=== PATIENT | male | born 1935 | race Caucasian/White ===

== ENCOUNTER → 2017-08-28 | Outpatient (CLI) | payer OTHER ==
[~2017-08-28] VITALS: Ht 167.6 cm; Wt 94.8 kg
[~2017-08-28] MED LIST: ASA5UEC PO; ASPIRIN81 M2 PO; CENTRUM SILVER1 EAC2 PO; DILTIAZEM 24HR240 M2 PO; HYDROCODON-ACE1 EAC7 PO; IRON18 M1 PO; MULTIVITAMINS1 EAC7 PO; PRAVACHOL40 MG PO; PROSCAR 5MG TABL5 MG PO; TAMSULOSIN HCL0.4 MG PO
--- NOTE | ~2017-08-28 | P ---
[facility] [place] [address] PROCEDURE REPORT Name: DAVID WILLSON Room #: REG Marlen Keri#: [id number] Admission: 08/28/17 Attend Phys: Ron Jones MD Discharge: Date of : 37 Report #: [id number] THIS REPORT FOR: //name// CC: Ron Weiss MD BRIEF HISTORY: The patient is an 82-year-old male who has never had a colonoscopy. He was found to have Hemoccult positive stools and mild anemia. PREOPERATIVE DIAGNOSES: Anemia and Hemoccult positive stools. POSTOPERATIVE DIAGNOSES: 1. Cecal mass consistent with cecal carcinoma. 2. Multiple colon polyps. 3. Moderate sigmoid diverticulosis coli. MEDICATIONS: Deep sedation with propofol per anesthesia. SPECIMENS: 1. Mid transverse colon polyp. 2. Biopsy of the cecal mass. 3. Hepatic flexure polyp. 4. Paroxysmal transverse colon polyp. 5. Polyp at 70 cm. ESTIMATED BLOOD LOSS: 3 mL. PROCEDURE: Colonoscopy to cecum and terminal ileum with snare polypectomy and biopsy. FINDINGS: Prior to propofol sedation, the procedure of colonoscopy was discussed with the patient as well as potential risks, benefits and complications. He indicates he understands and desires to proceed. With the patient in left lateral decubitus position, digital examination was completed, which revealed no abnormalities. Subsequently, the [employer] video colonoscope was introduced in the rectum, advanced under direct vision to the cecum. Done with minimal difficulty. The cecum was identified by the ileocecal valve and the appendiceal orifice. I was able to visualize the ileocecal valve and the distal segment of terminal ileum, which was inspected and noted to be unremarkable. At that point, the scope was slowly withdrawn and careful circumferential views were obtained. There was a small amount of blood in the cecum. In addition, there was an irregular malignant appearing mass in the cecum, ulcers were not seen, active bleeding was not seen. Findings were consistent with a cecal carcinoma. Multiple biopsies were obtained. As we withdrew the scope, he was found to have a diminutive polyp at the [address] [address] PROCEDURE REPORT Name: DAVID WILLSON Room #: REG [facility] Efrain#: [id number] Admission: 08/28/17 Attend Phys: Ron Jones MD Discharge: Date of : 37 Report #: [id number] flexure, removed with biopsy forceps. A 5-mm sessile proximal transverse colon polyp was seen and removed by cold snare polypectomy. A diminutive polyp was removed from mid transverse colon, another Diminutive polyp at 70 cm. No additional mass lesions were seen. In the left colon, particularly the sigmoid colon, there was moderately severe diverticular disease without endoscopic evidence of diverticulitis. Scope was withdrawn in the rectum and the rectum was inspected and noted to be unremarkable. Upon retroflexion, no additional lesions were seen. The scope was withdrawn. The patient tolerated the procedure well. CONDITION OF THE PATIENT UPON DISCHARGE: Following procedure, the patient drowsy. He will be discharged to home when fully ambulatory. INSTRUCTIONS TO THE PATIENT AND FAMILY AT THE TIME OF DISCHARGE: The patient has findings of a mass lesion in the cecum, this is likely the source of his anemia. We will follow up on biopsies obtained today. We will discuss with his primary care physician, Dr. Jenn Weiss. He will need further investigation, which included a CT scan of the chest, abdomen, and pelvis. He will also need surgical resection of the lesion. If the patient does well, he should return in 1 year for a followup colonoscopy. This the patient's first colonoscopy, withdrawal time from cecum was 16 minutes and 45 seconds. By: 1014 1146 Ron Jones MD /ruth
--- NOTE | ~2017-08-28 | P ---
[facility] [place] [address] PROCEDURE REPORT Name: DAVID WILLSON Room #: REG Marlen Cook#: [id number] Admission: 08/28/17 Attend Phys: Ron Jones MD Discharge: Date of : 36 Report #: [id number] THIS REPORT FOR: //name// CC: Ron Weiss MD BRIEF HISTORY: The patient is an 82-year-old male who was recently found to have Hemoccult positive stools on a routine exam. He also is anemic and has been placed on iron replacement. He has not had any GI symptoms, upper or lower GI. PREOPERATIVE DIAGNOSES: Anemia and Hemoccult-positive stools. POSTOPERATIVE DIAGNOSIS: Mild diffuse antral gastritis. MEDICATIONS: Deep sedation with propofol per anesthesia. SPECIMENS: 1. Biopsies of duodenum to rule out celiac disease. 2. Biopsies of gastritis. ESTIMATED BLOOD LOSS: 3 mL. PROCEDURE: EGD with biopsy. FINDINGS: Prior to propofol sedation, the procedure of upper endoscopy discussed with the patient as well as potential risks, benefits, and complications. He indicates he understands and desires to proceed. With the patient in left lateral decubitus position, the [employer] video endoscope was inserted in the cervical esophagus under direct vision without difficulty. Examination of this organ through its entire length revealed normal esophageal mucosa down the squamocolumnar junction. No ulcers or erosions were seen. No bleeding lesions were seen. There was no evidence of esophagitis or hiatus hernia or Saeed mucosa. The scope was advanced in the stomach, which was examined on end view as well as retroflexed views. There was erythema in the antrum, but no ulcers or erosions were seen. No bleeding lesions were seen. Upon retroflexion, no mass lesions were seen. Biopsies were obtained of the gastritis. The pylorus was normal. Duodenal bulb was normal. Postbulbar duodenal sweep down to the third portion was normal. At that point, the scope was slowly withdrawn and careful circumferential views were obtained. Biopsies were obtained of the duodenum to rule out celiac disease. Scope was withdrawn. The patient tolerated the procedure well. CONDITION OF THE PATIENT UPON DISCHARGE: Following procedure, the patient drowsy and prepared for colonoscopy. [facility] [address] [place] [address] PROCEDURE REPORT Name: DAVID WILLSON Room #: REG [facility]#: [id number] Admission: 08/28/17 Attend Phys: Ron Jones MD Discharge: Date of : 37 Report #: [id number] INSTRUCTIONS TO THE PATIENT AND FAMILY AT THE TIME OF DISCHARGE: He does have a gastritis, but no significant mucosal lesions to explain blood in stool or anemia. We will follow up on biopsies obtained today. We will proceed with colonoscopy. By: 0926 1130 Ron Jones MD /nt
--- NOTE | ~2017-08-28 | S ---
[facility] [place] [address] SURGICAL PATH RPT PROCEDURE Name: DAVID WILLSON Room #: REG JOY Cook.#: [id number] Admission: 08/28/17 Date of : 37 Discharge: Report #: [id number] Path Case #: [id number] PATHOLOGY REPORT COLLECTION DATE: 08/28/2017 RECEIVED DATE: 08/28/2017 SUBMITTING PHYS: Dr. Ron Jones OTHER PHYS: Dr. Jenn Weiss SPECIMEN(S) RECEIVED: A.Bx duodenum R/O celiac disease B.Bx gastritis C.Polyp at mid transverse colon D.Cecal mass E.Polyp at hepatic flexure F.Polyp at proximal transverse colon G.Polyp at 70 cm * * * * * * * * * * * * FINAL DIAGNOSIS: A. Small bowel, duodenum, biopsy: - Mild chronic inflammation. - Normal villous architecture. B. Stomach, biopsy: - Chronic superficial gastritis, mild. - No evidence of Helicobacter pylori on immunoperoxidase stain. C. Colon, mid transverse, biopsy: - Hyperplastic polyp. D. Colon, "cecal mass", biopsy: - Invasive moderately differentiated adenocarcinoma with associated abundant acute and chronic inflammation. (Please see comment) E. Colon, hepatic flexure, biopsy: - Hyperplastic polyp. F. Colon, proximal transverse, biopsy: - Adenomatous colonic mucosa, three fragments. - Colonic mucosa with mild hyperplastic changes, two fragments. G. Colon, 70 cm, biopsy: - Adenomatous polyp, one fragment. - Several tiny fragments of colonic mucosa with mild hyperplastic changes. (SKM:whitney; 08/29/2017) COMMENT: Part "D" of this case has also been reviewed by Danny Hi M.D., who agrees with the diagnosis. Per Cancer Committee protocol at [facility], the tumor [facility] [address] [place] [address] SURGICAL PATH RPT PROCEDURE Name: DAVID WILLSON Room #: REG JOY CookCeleste#: [id number] Admission: 08/28/17 Date of : 37 Discharge: Report #: [id number] Path Case #: [id number] present in part D will be tested for microsatellite instability. The results will be issued separately. The findings in this case were discussed with Dr. Ron Jones on 08/29/2017. (DANIELM:whitney; 08/29/2017) PATHOLOGIST: Bridget Varela M.D. REPORT ELECTRONICALLY SIGNED BY: Bridget Varela M.D. DATE/TIME: 08/29/2017 14:30 * * * * * * * * * * * * GROSS PATHOLOGY: A. Received in formalin labeled "EVA Rascon duodenum, rule out celiac," are 4 segments of grijalva soft tissue measuring 1.4 x 1.2 x 0.3 cm in aggregate dimensions and ranging from 0.2 to 0.7 cm in maximum dimension. The specimen is submitted entirely in cassette A1. B. Received in formalin labeled "EVA Rascon gastritis," are 5 segments of grijalva soft tissue measuring 1.8 x 0.7 x 0.3 cm in aggregate dimensions and ranging from 0.3 to 0.6 cm in maximum dimension. The specimen is submitted entirely in cassette B1. C. Received in formalin labeled "David Willson, polyp at mid transverse colon," is a segment of grijalva soft tissue measuring 0.4 cm in maximum dimension. The specimen is submitted entirely in cassette C1. D. Received in formalin labeled "David Willson, BX cecal mass," are 4 segments of grijalva soft tissue measuring 1.3 x 0.9 x 0.3 cm in aggregate dimensions and ranging from 0.2 to 0.5 cm in maximum dimension. The specimen is submitted entirely in cassette D1. E. Received in formalin labeled "David Willson, polyp at hepatic flexure," is a segment of grijalva soft tissue measuring 0.4 cm in maximum dimension. The specimen is submitted entirely in cassette E1. F. Received in formalin labeled "David Willson, polyp at proximal transverse colon," are 5 segments of grijalva soft tissue measuring 1.9 x 1.1 x 0.3 cm in aggregate dimensions and ranging from 0.3 to 0.5 cm in maximum dimension. The specimen is submitted entirely in cassette F1. G. Received in formalin labeled "David Willson, polyp at 70 cm," are 4 segments of grijalva soft tissue measuring 0.7 x 0.2 x 0.2 cm in aggregate dimensions and ranging from 0.3 to 0.4 cm in maximum dimension. The specimen is submitted entirely in cassette G1. (TSD; 08/28/2017) CLINICAL HISTORY: Pre-OP DX: Blood in stool Post-OP DX: Gastritis, diverticulosis, colon polyp, cecal mass [address] [address] SURGICAL PATH RPT PROCEDURE Name: DRU WILLSONFORD Fran Room #: REG JOY Zuniga#: [id number] Admission: 08/28/17 Date of : 37 Discharge: Report #: [id number] Path Case #: [id number] INITIAL CPT CODE(S): A; 06518 B; 98198, 77283 C; 74783 D; 78792, 27825, 74751, 64414, 28921 E; 24333 F; 51267 G; 05931 Professional services performed by [facility] [place] [address] [address], [place] [address] Technical services performed by [facility] at [address] [place] [address], [facility] [address] [address]. [facility] [address] [place] [address] PHONE: [phone] DIRECTOR: Denis Krishnamurthy M.D. * * * END OF REPORT * * *
== END | disposition home or self-care (01) ==
LOC: GI 07:26
DX: C18.0 Malignant neoplasm of cecum (principal); K29.60 Other gastritis without bleeding; K63.5 Polyp of colon; D64.9 Anemia, unspecified; D12.3 Benign neoplasm of transverse colon; K57.30 Diverticulosis of large intestine without perforation or abscess without bleeding; J43.9 Emphysema, unspecified; I10 Essential (primary) hypertension; Z95.1 Presence of aortocoronary bypass graft; Z98.890 Other specified postprocedural states; E78.00 Pure hypercholesterolemia, unspecified
CPT/HCPCS: 62110; 62900

== ENCOUNTER → 2017-09-08 | Outpatient (CLI) | payer OTHER ==
--- NOTE | ~2017-09-08 | 2DMMODE ---
[facility] [place] [place] [address] 2 D/M-MODE ECHOCARDIOGRAM Name: DAVID WILLSON Room #: REG [facility]#: [id number] Admission: 09/08/17 Attend Phys: Francisco Javier Marti MD Discharge: Date of : 37 Date of Service: 09/08/17 1322 Report #: [id number] THIS REPORT FOR: //name// APPROVED REPORT Study performed: 09/08/2017 12:43:16 EXAM: Comprehensive 2D, Doppler, and color-flow Echocardiogram Patient Location: Echo lab Status: routine BSA: 2.04 BP: 122/77 mmHg Other Information Study Quality: Adequate Indications CAD 2D Dimensions RVDd: 30.35 mm LVEF(%): 57.01 (>50%) IVSd: 12.76 (7-11mm) LVOT Diam: 20.32 (18-24mm) LVDd: 37.82 mm PWd: 12.46 (7-11mm) Ascending Ao: 31.29 (22-36mm) LVDs: 26.72 (25-40mm) Aortic Root: 32.87 mm IVC: 9.00 mm Upton's LVEF: 57.01 % Volumes Left Atrial Volume (Systole) Single Plane 4CH: 16.75 mL Single Plane 2CH: 23.31 mL LA ESV Index: 11.00 mL/m2 Aortic Valve AoV Peak Jose Juan.: 1.42 m/s AO Peak Gr.: 8.07 mmHg LVOT Max P.23 mmHg LVOT Max V: 0.90 m/s ROSSY Vmax: 2.05 cm2 Mitral Valve E/A Ratio: 0.7 MV Decel. Time: 220.32 ms MV E Max Jose Juan.: 0.78 m/s [facility] [place] [address] [place] [address] 2 D/M-MODE ECHOCARDIOGRAM Name: ESTEPHANIEADVID HARTLEY Room #: [facility]#: [id number] Admission: 09/08/17 Attend Phys: Francisco Javier Marti MD Discharge: Date of : 37 Date of Service: 09/08/17 1322 Report #: [id number] MV A Jose Juan.: 1.08 m/s MV PHT: 63.89 ms IVRT: 129.18 ms Pulmonary Valve PV Peak Jose Juan.: 1.01 m/s PV Peak Gr.: 4.08 mmHg Tricuspid Valve RAP Estimate: 5.00 mmHg Left Ventricle The left ventricle is normal size. Mild concentric left ventricular hypertrophy. The left ventricular systolic function is normal. The left ventricular ejection fraction is within the normal range. LVEF is 55-60%. Mild diastolic dysfunction is present (impaired relaxation pattern). Right Ventricle The right ventricle is normal size. Right ventricle is mildly hypokinetic. Atria The left atrium size is normal. The right atrium size is normal. Aortic Valve The aortic valve is normal in structure. No aortic regurgitation is present. There is no aortic valvular stenosis. Mitral Valve The mitral valve is normal in structure. There is no mitral valve regurgitation noted. No evidence of mitral valve stenosis. Tricuspid Valve The tricuspid valve is normal in structure. Trace tricuspid regurgitation. Unable to assess PA pressure. Pulmonic Valve The pulmonary valve is normal in structure. There is no pulmonic valvular regurgitation. Great Vessels The aortic root is normal in size. IVC is normal in size and collapses >50% with inspiration. Pericardium [facility] [place] [address] [place] [address] 2 D/M-MODE ECHOCARDIOGRAM Name: DAVID WILLSON Room #: REG [facility]#: [id number] Admission: 09/08/17 Attend Phys: Francisco Javier Marti MD Discharge: Date of : 37 Date of Service: 09/08/17 1322 Report #: [id number] There is no pericardial effusion. <Conclusion> The left ventricle is normal size. Mild concentric left ventricular hypertrophy. The left ventricular systolic function is normal. Mild diastolic dysfunction is present (impaired relaxation pattern). The right ventricle is normal size. The left atrium size is normal. The aortic valve is normal in structure. The mitral valve is normal in structure. There is no pericardial effusion. <ELECTRONICALLY SIGNED> By: Francisco Javier Marti MD 09/08/17 1322 21 21 Francisco Javier Marti MD /INF
== END ==
LOC: CV 12:00
DX: I25.10 Atherosclerotic heart disease of native coronary artery without angina pectoris (principal); I51.7 Cardiomegaly

== ENCOUNTER → 2019-02-23 | Outpatient (CLI) | payer OTHER, MEDICARE ==
[~2019-02-23] VITALS: Ht 165.1 cm; Wt 91.9 kg
[~2019-02-23] MED LIST changes: +ALBUTEROL2.5 MG/31 INH; +FLORASTOR250 MG PO; +LASIX 20 MG TAB20 MG PO; +NORCO 5-325 TA1 EAC1 PO; +TYLENOL325 MG PO; +URECHOLINE25 MG PO
[2019-02-23 09:49] VITALS: BP 112/74
--- NOTE | 2019-02-23 10:06 | NUR ---
Pain Clinic Assessment: 1. History of Osteoarthritis: History of Rheumatoid Arthritis: 2. Height: 5 ft. 5 in. 165.1 cm. Weight: 202.6 lb. oz. 91.899 kg. Patient's BMI: 33.7 3. Vital Signs: BP: 112/74 Pulse: 98 Resp: 20 Temp: 02 Sat: 98 ECG Mon: 4. Pain Intensity: 5 5. Fall Risk: Dizziness: N Needs help standing or walking: Y Fallen in the last 3 months: N Fall risk comments: 6. Patient on Blood Thinner: None 7. History of Hypertension: Y 8. Opioid Therapy greater than 6 weeks: N Opiate Contract Signed: 9. Risk Assessment Tool Provided: 10. Functional Assessment Tool: 11. Recreational Drug Use: Never Drug Type: Tobacco Use: Never Smoker Tobacco Type: Amount or Packs/day: How Many Years: Alcohol Use: No Frequency: Quant:
--- NOTE | 2019-03-02 13:04 | HPC ---
[facility] [place] [address] PAIN MANAGEMENT CONSULTATION Name: DEMETRISDAVID Fran Room #: REG JOY Efrain#: [id number] Admission: 02/23/19 ������������������ Attend Phys: Lj Patel DO Discharge: ������������������ Date of : 37 Report #: [id number] THIS REPORT FOR: //name// CC: Lj Weiss MD DATE OF SERVICE: 02/23/2019 REFERRING PHYSICIAN: Jenn Weiss M.D. CHIEF COMPLAINT: Low back pain and lower extremity pain with paresthesias. HISTORY OF PRESENT ILLNESS: As you know, the patient is an 83-year-old male who has been referred to our clinic for low back pain, bilateral lower extremity pain, unresponsive to conservative medication management. The patient has sought treatment with Dr. Jenn Weiss and has trialed conservative treatment options. Unfortunately, his symptoms have not been responsive to these conservative treatments including home physical therapy program that is physician-directed medication management. The patient has recently undergone a new MRI of the lumbar spine, which shows multilevel degenerative changes throughout the lumbar region with foraminal stenosis noted at the L5-S1 level that is severe in nature. There is mild central canal stenosis at L3-L4 and L4-L5. Due to lack of improvement with conservative treatment, the patient was subsequently referred to our clinic to discuss treatment options. The patient states today pain is aching, sharp, throbbing, numbness and constant. He places current pain score 5/10. He states the pain is exacerbated with lying down and certain activities and improves with rest, relaxation, heat and cold compresses. The patient has been referred to our clinic for evaluation for possible lumbar epidural injection under fluoroscopic guidance. PAST MEDICAL HISTORY: 1. Hypertension. 2. Asthma. 3. Benign prostatic hypertrophy. 4. Dyslipidemia. 5. Osteoarthritis. 6. Colon cancer. PAST SURGICAL HISTORY: 1. Coronary artery bypass grafting. 2. Herniorrhaphy. 3. Lithotripsy. 4. Colectomy. [address] [address] PAIN MANAGEMENT CONSULTATION Name: DAVID WILLSON Room #: REG [facility] Joyce.#: [id number] Admission: 02/23/19 ������������������ Attend Phys: Lj Patel DO Discharge: ������������������ Date of : 36 Report #: [id number] SOCIAL HISTORY: The patient denies tobacco, alcohol or IV or illicit drug use. He is retired, retired years ago and not receiving workmen's compensation nor is he trying to obtain disability benefits. ALLERGIES: PENICILLIN. CURRENT MEDICATIONS: Hydrocodone 5/325 one tab p.o. q. 8 hours p.r.n. for pain, albuterol 2 puffs q. 4 hours p.r.n., furosemide 20 mg once a day, Florastor 250 mg twice a day, acetaminophen 325 mg once a day, diltiazem ER 240 mg once a day, aspirin 81 mg per day, tamsulosin 0.4 mg once a day, finasteride 5 mg per day and pravastatin 40 mg per day. IMAGING DATA: MRI of the lumbar spine obtained 02/01/2019 shows multilevel degenerative changes of the lumbar spine with foraminal stenosis noted at the L5-S1 level, classified as severe, mild central canal stenosis noted at L3-L4 and L4-L5 and there is mild disk bulging and facet arthropathy noted throughout lumbar region. PQRS: The patient has known osteoarthritic changes of the lumbar spine, bilateral hips and cervical region. He is not treated for rheumatoid arthritis, nor does he carries a diagnosis of rheumatoid arthritis. He is placing pain intensity 5/10. He is a fall risk but has not had a fall in the last 3 months. He is utilizing an ambulatory devices at present. These do not appear to be prescribed. The patient is not on blood thinners but is treated for hypertension. He is on opioids but has not been on for greater than 6 weeks. He has a low opiate addiction potential. Pain impact score 52/70, severe interference of daily activities secondary to pain. PHYSICAL EXAMINATION: VITAL SIGNS: Blood pressure 112/74, pulse 98 and respiratory rate 20 and unlabored. The patient is 98% on room air. Height 5 feet 5 inches tall, weight 202.6 pounds and BMI calculated 33.7. GENERAL: Well-developed, well-nourished, well-hydrated 83-year-old male appearing stated age, placing current pain score at anywhere from 5-6/10 depending on activity. HEENT: Normocephalic and atraumatic. Pupils equal, round and reactive to light. Extraocular muscles are intact. Sclerae nonicteric without injection. NEUROLOGICAL: Cranial nerves 2 through 12 grossly intact. Speech fluent. The patient deemed a good historian. LUNGS: Clear. No wheeze, rhonchi or rales. CARDIOVASCULAR: Regular. No appreciable gallop and no rub. ABDOMEN: Soft, nontender and nondistended. Normoactive bowel sounds. EXTREMITIES: Show no clubbing, no cyanosis and no edema. MUSCULOSKELETAL: Lower extremity strength appears symmetrical 5/5. There does not appear to be any giveaway strength noted with hip flexion, knee extension. Muscle bulk and tone equal and symmetrical in lower extremities. There is noted [facility] [address] [place] [address] PAIN MANAGEMENT CONSULTATION Name: DAVID WILLSON Room #: REG [facility]#: [id number] Admission: 02/23/19 ������������������ Attend Phys: Lj Patel DO Discharge: ������������������ Date of : 36 Report #: [id number] deconditioning bilaterally. Deep tendon reflexes are symmetrical, 2+/4 at patella and Achilles. Ankle clonus negative. Babinski is negative. Gait mildly antalgic favoring right lower extremity over left. Seated straight leg raising negative. Supine straight leg raising mildly positive right. Stance appears slightly forward flexed, minor loss of lordotic curvature. ASSESSMENT: 1. Symptomatic lumbar radiculopathy. 2. Spinal stenosis of the lumbar spine. 3. Severe neural foraminal stenosis of the lumbar spine. 4. 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 5. Lumbosacral spondylosis with radiculopathy. 6. Degeneration of the lumbar spine. 7. Chronic intractable pain. PLAN: 1. Based on today's physical exam and history the patient has provided, the description the patient uses in regards to pain, the distribution of symptoms that he is describing symptoms presenting at and the findings of his MRI, likely source of his pain is lumbar radiculopathy. The findings of the MRI correlate to neural foraminal stenosis at the L5-S1 level and this does correlate to our findings on physical exam. We discussed with the patient treatment options for lumbar radicular symptoms secondary to severe neural foraminal stenosis. These are the following treatment options. We discussed physical therapy, stretching exercise, core strengthening as a treatment course. We discussed medication management adding neuropathic pain medications for pain control. We discussed epidural injections under fluoroscopic guidance for which the patient was referred to our clinic. We discussed options of surgical approach including a spinal cord stimulator and traditional surgical decompression. After reviewing the risks and benefits of all proposed treatment options, the patient chose to undergo a lumbar epidural injection under fluoroscopic guidance. 2. The patient was advised risks and benefits of a lumbar epidural injection. These risks include but are not necessarily limited to bleeding, bruising, infection, worsening pain, no relief of pain, also risk of temporary or permanent muscle weakness, temporary or permanent nerve damage, possible paralysis, post-dural puncture headache and . The patient states understood and wished to proceed. 3. No medication changes made at today's visit. The patient will continue current medical therapy as previously prescribed. 4. We will see the patient back in followup visit on an as needed basis for possible next in the series of lumbar epidural injections. PROCEDURE NOTE [address] [address] PAIN MANAGEMENT CONSULTATION Name: DEMETRISDAVID Peters Room #: REG [facility] Efrain#: [id number] Admission: 02/23/19 ������������������ Attend Phys: Lj Patel DO Discharge: ������������������ Date of : 36 Report #: [id number] DESCRIPTION OF PROCEDURE: L5-S1 right paramedian epidural steroid injection under fluoroscopic guidance. This is the first procedure of the first series that the patient is undergoing. After obtaining written consent, the patient was taken back to the fluoroscopy suite, placed in a prone position with pillow under the abdomen to decrease lumbar lordosis. The skin overlying the lumbosacral area was then prepped and draped in aseptic fashion. The L5-S1 vertebral interspace was then identified by AP fluoroscopy. The skin and subcutaneous tissue overlying the target site of injection was anesthetized with 3 mL 1% lidocaine. A 20-gauge 3-1/2 inch Tuohy needle was then advanced under fluoroscopic guidance towards the epidural space using a right paramedian approach. The epidural space was identified using loss of resistance to air technique. After negative aspiration for heme or cerebrospinal fluid, a total of 0.5 mL of Omnipaque was injected. A lumbar epidurogram was confirmed using both AP and lateral fluoroscopy. After negative aspiration for heme or cerebrospinal fluid, 5 mL of a solution containing 2 mL 40 mg per mL, 80 mg total triamcinolone, 3 mL lidocaine 1% was injected in increments. Contrast spread was noted posterior epidural space. The needle was then retracted approximately half way and needle tract flushed with 1 mL of 1% lidocaine. Needle was then removed. There were no apparent sensory or motor deficits in the lower extremity following the procedure. A sterile bandage was placed over the injection site. The heart rate, pulse, oximetry and blood pressure were continuously monitored after the procedure. There were no apparent complications. The patient tolerated the procedure well and was carefully escorted to the recovery room in stable condition. There were no apparent complications. After meeting discharge criteria, the patient was then discharged home. ��������������������������������������������� <ELECTRONICALLY SIGNED> ���������������������������������������� By: Lj Patel DO ��������������������������������������������� 03/02/19 [id number] Lj Patel DO /nt
== END | disposition home or self-care (01) ==
LOC: PAIN 06:44
DX: M51.16 Intervertebral disc disorders with radiculopathy, lumbar region (principal); M48.061 Spinal stenosis, lumbar region without neurogenic claudication; M47.27 Other spondylosis with radiculopathy, lumbosacral region; G89.29 Other chronic pain; I10 Essential (primary) hypertension; J45.909 Unspecified asthma, uncomplicated; E78.5 Hyperlipidemia, unspecified; M19.90 Unspecified osteoarthritis, unspecified site; N40.0 Benign prostatic hyperplasia without lower urinary tract symptoms; Z85.038 Personal history of other malignant neoplasm of large intestine; Z88.0 Allergy status to penicillin; Z95.1 Presence of aortocoronary bypass graft; Z79.82 Long term (current) use of aspirin; Z79.899 Other long term (current) drug therapy; Z98.890 Other specified postprocedural states; Z98.0 Intestinal bypass and anastomosis status

== ENCOUNTER → 2019-09-13 | Outpatient (CLI) | payer OTHER, MEDICARE | LOC: SJCVC 14:46 | DX: E78.00 Pure hypercholesterolemia, unspecified (principal); I25.10 Atherosclerotic heart disease of native coronary artery without angina pectoris; I10 Essential (primary) hypertension; R60.9 Edema, unspecified ==

== ENCOUNTER → 2019-09-13 | Outpatient (CLI) | payer OTHER, MEDICARE ==
--- NOTE | 2019-09-13 15:20 | 2DMMODE ---
[facility] [place] [address] 2 D/M-MODE ECHOCARDIOGRAM Name: DAVID WILLSON Room #: REG [facility]#: [id number] Admission: 09/13/19 Attend Phys: Francisco Javier Marti MD Discharge: Date of : 36 Report #: [id number] THIS REPORT FOR: //name// APPROVED REPORT Study performed: 09/13/2019 14:12:17 EXAM: Comprehensive 2D, Doppler, and color-flow Echocardiogram Patient Location: Out-Patient Status: routine BSA: 1.94 HR: 84 bpm BP: 124/68 mmHg Rhythm: NSR Other Information Study Quality: Adequate Indications CAD Hx: CABG 2D Dimensions RVDd: 34.57 mm IVSd: 9.16 (7-11mm) LVOT Diam: 21.31 (18-24mm) LVDd: 40.50 mm PWd: 8.10 (7-11mm) Ascending Ao: 35.20 (22-36mm) LVDs: 30.06 (25-40mm) Aortic Root: 34.44 mm Volumes Left Atrial Volume (Systole) Single Plane 4CH: 36.45 mL Single Plane 2CH: 38.36 mL LA ESV Index: 21.00 mL/m2 Aortic Valve AoV Peak Jose Jaun.: 2.24 m/s AO Peak Gr.: 20.10 mmHg LVOT Max P.72 mmHg AO Mean Gr.: 11.32 mmHg AO V2 Mean: 1.63 m/s LVOT Max V: 0.96 m/s AO V2 VTI: 43.37 cm ROSSY Vmax: 1.53 cm2 Mitral Valve [facility] [address] [place] [address] 2 D/M-MODE ECHOCARDIOGRAM Name: DAVID WILLSON Room #: REG [facility]#: [id number] Admission: 09/13/19 Attend Phys: Francisco Javier Marti MD Discharge: Date of : 36 Report #: [id number] E/A Ratio: 0.6 MV Decel. Time: 234.02 ms MV E Max Jose Juan.: 0.71 m/s MV A Jose Juan.: 1.26 m/s MV PHT: 67.87 ms IVRT: 85.35 ms Pulmonary Valve PV Peak Jose Juan.: 1.08 m/s PV Peak Gr.: 4.64 mmHg Pulmonary Vein P Vein S: 0.59 m/s P Vein A: 0.29 m/s P Vein D: 0.36 m/s P Vein A Dur.: 107.3 msec P Vein S/D Ratio: 1.64 Tricuspid Valve TR Peak Jose Juan.: 2.20 m/s RAP Estimate: 5.00 mmHg TR Peak Gr.: 19.33 mmHg PA Pressure: 24.00 mmHg Left Ventricle The left ventricle is normal size. There is normal LV segmental wall motion. There is normal left ventricular wall thickness. Left ventricular systolic function is normal. LVEF is 55%. Mild diastolic dysfunction is present (impaired relaxation pattern). Right Ventricle The right ventricle is normal size. The right ventricular systolic function is normal. Atria The left atrium size is normal. The right atrium size is normal. Aortic Valve The Aortic valve is sclerotic. No aortic regurgitation is present. Mitral Valve The mitral valve is normal in structure. Mild mitral annular calcification. Trace to mild mitral regurgitation. No evidence of mitral valve stenosis. Tricuspid Valve The tricuspid valve is normal in structure. Trace tricuspid regurgitation. Estimated PAP is 25mmHg. [facility] [address] [address] 2 D/M-MODE ECHOCARDIOGRAM Name: DAVID WILLSON Room #: REG [facility]#: [id number] Admission: 09/13/19 Attend Phys: Francisco Javier Marti MD Discharge: Date of : 36 Report #: [id number] Pulmonic Valve The pulmonary valve is normal in structure. Trace pulmonic regurgitation. Great Vessels The aortic root is normal in size. The ascending aorta is normal in size. IVC is normal in size and collapses >50% with inspiration. Pericardium There is no pericardial effusion. <Conclusion> The left ventricle is normal size. There is normal left ventricular wall thickness. Left ventricular systolic function is normal. Mild diastolic dysfunction is present (impaired relaxation pattern). The right ventricle is normal size. The left atrium size is normal. The Aortic valve is sclerotic. Mild mitral annular calcification. Trace to mild mitral regurgitation. Trace tricuspid regurgitation. Estimated PAP is 25mmHg. <ELECTRONICALLY SIGNED> By: Francisco Javier Marti MD 09/13/191518 18 18 Francisco Javier Marti MD /INF
== END ==
LOC: CV 12:04
DX: I08.0 Rheumatic disorders of both mitral and aortic valves (principal); I25.10 Atherosclerotic heart disease of native coronary artery without angina pectoris

== ENCOUNTER → 2020-03-13 | Outpatient (CLI) | payer OTHER, MEDICARE | LOC: SJCVCIMAG 10:02 | PROVIDERS: ATTEND Internal Medicine Cardiovascular Disease | DX: I65.23 Occlusion and stenosis of bilateral carotid arteries (principal); R94.31 Abnormal electrocardiogram [ECG] [EKG]; R00.0 Tachycardia, unspecified; I25.10 Atherosclerotic heart disease of native coronary artery without angina pectoris; I10 Essential (primary) hypertension; E78.00 Pure hypercholesterolemia, unspecified; Z95.1 Presence of aortocoronary bypass graft; Z79.899 Other long term (current) drug therapy ==

== ENCOUNTER → 2020-09-18 | Outpatient (CLI) | payer OTHER, MEDICARE | LOC: SJCVCIMAG 08:51 | PROVIDERS: ATTEND Internal Medicine Cardiovascular Disease | DX: I25.10 Atherosclerotic heart disease of native coronary artery without angina pectoris (principal); R00.0 Tachycardia, unspecified; I10 Essential (primary) hypertension; E78.00 Pure hypercholesterolemia, unspecified; R60.9 Edema, unspecified; J44.9 Chronic obstructive pulmonary disease, unspecified; E11.9 Type 2 diabetes mellitus without complications; E78.5 Hyperlipidemia, unspecified; I25.2 Old myocardial infarction; Z95.1 Presence of aortocoronary bypass graft; Z95.5 Presence of coronary angioplasty implant and graft; Z79.82 Long term (current) use of aspirin; Z79.899 Other long term (current) drug therapy ==

== ENCOUNTER → 2021-03-19 | Outpatient (CLI) | payer OTHER, MEDICARE | LOC: SJCVC 10:55 | PROVIDERS: ATTEND Internal Medicine Cardiovascular Disease | DX: R94.31 Abnormal electrocardiogram [ECG] [EKG] (principal); R00.0 Tachycardia, unspecified; I25.10 Atherosclerotic heart disease of native coronary artery without angina pectoris; I10 Essential (primary) hypertension; E78.00 Pure hypercholesterolemia, unspecified; R60.9 Edema, unspecified; J44.9 Chronic obstructive pulmonary disease, unspecified; E11.9 Type 2 diabetes mellitus without complications; E78.5 Hyperlipidemia, unspecified; I25.2 Old myocardial infarction; Z95.1 Presence of aortocoronary bypass graft; Z88.0 Allergy status to penicillin; Z88.8 Allergy status to other drugs, medicaments and biological substances; Z79.82 Long term (current) use of aspirin; Z79.899 Other long term (current) drug therapy ==

== ENCOUNTER → 2021-10-22 | Outpatient (CLI) | payer OTHER, MEDICARE | LOC: SJCVCIMAG 09:26 | PROVIDERS: ATTEND Internal Medicine Cardiovascular Disease | DX: I25.10 Atherosclerotic heart disease of native coronary artery without angina pectoris (principal); I10 Essential (primary) hypertension; E78.00 Pure hypercholesterolemia, unspecified; R94.31 Abnormal electrocardiogram [ECG] [EKG]; R60.9 Edema, unspecified; Z88.0 Allergy status to penicillin; Z88.8 Allergy status to other drugs, medicaments and biological substances; Z79.82 Long term (current) use of aspirin; Z79.899 Other long term (current) drug therapy; C18.9 Malignant neoplasm of colon, unspecified; Z82.49 Family history of ischemic heart disease and other diseases of the circulatory system ==